=== PATIENT | female | born 1965 | race American Indian/Alaskan Native ===

== ENCOUNTER 2019-11-12 12:03 | Inpatient (IN) | payer SELFPAY ==
[2019-11-12] MEDS ORDERED: INSULIN REGULAR, HUMAN 100 UNITS/1 ML IV ONE (12:38)
[2019-11-12] MEDS ORDERED: SODIUM CHLORIDE 0.9% 1000 ML 1,000 ML IV ONE ×3 (12:38→15:34)
[2019-11-12] MEDS ORDERED: DEXTROSE 50% IN WATER (25GM) 50 ML SYRINGE IV PRN (12:51)
[2019-11-12 13:03] LABS: Monocytes % (Auto) 9.1 % (0.0-7.3)
[2019-11-12 13:09] LABS: Hemoglobin 12.5 gm/dl (10.1-14.3); Red Blood Count 5.38 M/mm3 (3.65-5.03)
[2019-11-12 13:10] LABS: Basophils % (Auto) 0.2 % (0.0-1.8); Hematocrit 41.6 % (30.3-42.9); Lymphocytes # (Auto) 1.4 K/mm3 (1.2-5.4); Lymphocytes % (Auto) 12.8 % (13.4-35.0); Mean Corpuscular HGB Conc 30 % (30-34); Mean Corpuscular Volume 77 fl (79-97); Platelet Count 209 K/mm3 (140-440)
--- NOTE | 2019-11-12 13:28 | Cat Scan Report ---
CT HEAD WITHOUT CONTRAST INDICATION / CLINICAL INFORMATION: ams. TECHNIQUE: Axial imaging performed from the skull apex through the skull base without the use of cont rast. Sagittal and coronal reformatted images. All CT scans at this location are performed using CT dose reduction for ALARA by means of automated exposure control. COMPARISON: None available. FINDINGS: CEREBRAL PARENCHYMA: No significant abnormality. No acute territorial infarct. HEMORRHAGE: None. EXTRA-AXIAL SPACES: Normal in size and morphology for the patient's age. VENTRICULAR SYSTEM: Normal in size and morphology for the patient's age. MIDLINE SHIFT OR HERNIATION: None. CEREBELLUM / BRAINSTEM: No significant abnormality. CALVARIUM: No significant abnormality. ORBITS: Normal as visualized. PARANASAL SINUSES / MASTOID AIR CELLS: Normal as visualized. SOFT TISSUES of HEAD: No significant abnormality. ADDITIONAL FINDINGS: None. IMPRESSION: No acute intracranial abnormality. CT CERVICAL SPINE WITHOUT CONTRAST INDICATION: ams. Found on floor. TECHNIQUE: Axial imaging performed through the cervical spine without the use of contrast. Sagittal and coronal reconstructed images were also reviewed. All CT scans at this location are performed us ing CT dose reduction for ALARA by means of automated exposure control. COMPARISON: None FINDINGS: Alignment: Spinal alignment is normal. Bones: There is no acute osseous abnormality. Mild multilevel discogenic DJD is present. Soft tissues: No acute or significant incidental soft tissue abnormality. IMPRESSION: No acute abnormality. Signer Name: Robin Mendoza Jr, MD Signed: 11/12/2019 1:23 PM Workstation Name: [id number]
--- NOTE | 2019-11-12 13:41 | Emergency Department Report ---
ED Altered Mental Status HPI - General Chief Complaint: Altered Mental Status Stated Complaint: ALTERED MENTAL STATUS Time Seen by Provider: 11/12/19 12:38 Source: patient, EMS Mode of arrival: Stretcher Limitations: No Limitations - History of Present Illness Initial Comments: 54-year-old female with no known significant past medical history presents to the hospital with alteration in mental status.. Patient has been reclusive since her mother's in [place] 1 month ago. She does not have any family in the [place]. Her friends have been coming by to see her periodically and bring her food. They report that she has been "declining" over the last month. Today she was found on the floor of her house confused and was brought to the ER for evaluation. Patient is very slow to respond to questions and falls asleep. Kussmaul respirations noted. Patient denies any pain - Related Data Home Medications Medication Instructions Recorded Confirmed Last Taken Calcium Carbonate [ Calcium 600 mg PO 04/17/13 04/23/13 04/22/13 Elemental 600 mg] Marcia Dexter/Linoleic/Gamoleni 1 cap PO DAILY 04/17/13 04/23/13 04/18/13 [Evening Dexter 1,000 mg Sftg] Multivitamin [Multi Vitamin Daily] 1 each PO 04/17/13 04/23/13 04/22/13 [place]-3 Fatty Acids/Fish Oil [Fish 1 each PO DAILY 04/17/13 04/23/13 04/18/13 Oil] Previous Rx's Medication Instructions Recorded Last Taken Type HYDROcodone/ACETAMINOPHEN 1 each PO Q6H PRN #20 tablet 04/15/13 04/18/13 Rx [Hydrocodone Acetaminophen 7.5/500Mg Tab] Oxycodone HCl/Acetaminophen 1 each PO Q4-6H PRN #60 tablet 04/23/13 Unknown Rx [Percocet 7.5-325 mg] Allergies Allergy/AdvReac Type Severity Reaction Status Date / Time latex Allergy Swelling Verified 11/12/19 12:38 Penicillins Allergy Hives Verified 11/12/19 12:38 ED Review of Systems ROS: Stated complaint: ALTERED MENTAL STATUS Other details as noted in HPI Comment: All other systems reviewed and negative ED Past Medical Hx - Past Medical History Previous Medical History?: Yes Hx Hypertension: No Hx Heart Attack/AMI: No Hx GERD: Yes Hx Liver Disease: No Hx Renal Disease: No Hx Sickle Cell Disease: No Hx Seizures: No Hx Asthma: No Hx COPD: No Additional medical history: uterine fibroids - Surgical History Past Surgical History?: Yes Hx Pacemaker: No Hx Internal Defibrillator: No Additional Surgical History: myomectomy - Social History Smoking Status: Never Smoker - Medications Home Medications: Home Medications Medication Instructions Recorded Confirmed Last Taken Type HYDROcodone/ACETAMINOPHEN 1 each PO Q6H PRN #20 tablet 04/15/13 04/23/13 04/18/13 Rx [Hydrocodone Acetaminophen 7.5/500Mg Tab] Calcium Carbonate [ Calcium 600 mg PO 04/17/13 04/23/13 04/22/13 History Elemental 600 mg] Marcia Dexter/Linoleic/Gamoleni 1 cap PO DAILY 04/17/13 04/23/13 04/18/13 History [Evening Dexter 1,000 mg Sftg] Multivitamin [Multi Vitamin Daily] 1 each PO 04/17/13 04/23/13 04/22/13 History Cast[place]-3 Fatty Acids/Fish Oil [Fish 1 each PO DAILY 04/17/13 04/23/13 04/18/13 History Oil] Oxycodone HCl/Acetaminophen 1 each PO Q4-6H PRN #60 tablet 04/23/13 Unknown Rx [Percocet 7.5-325 mg] ED Physical Exam - General Limitations: No Limitations - Other Other exam information: General: No acute distress Head: Atraumatic Eyes: normal appearance ENT: Dry mucous membrane Neck: Normal appearance, no midline tenderness Chest: Clear to auscultation bilaterally, mild tachypnea CV: Tachycardic regular rhythm Abdomen: Soft, normal bowel sounds, nontender, nondistended, no rebound or guarding Back: Normal inspection Extremity: Normal inspection, full range of motion Neuro: Lethargic, slow to respond to questions, follows commands, no facial asymmetry, equal handgrip of foot dorsiflexion. Oriented to person, place, and year Psych: Appropriate behavior Skin: No rash ED Course Vital Signs 11/12/19 11/12/19 11/12/19 12:33 12:44 12:46 Temperature 97.5 F L 97.3 F L Pulse Rate 114 H 114 H Respiratory 16 24 23 Rate Blood Pressure 114/57 129/89 Blood Pressure 129/89 [Right] O2 Sat by Pulse 100 99 100 Oximetry 11/12/19 11/12/19 13:46 14:46 Temperature Pulse Rate 121 H 128 H Respiratory 29 H 22 Rate Blood Pressure 105/53 102/72 Blood Pressure [Right] O2 Sat by Pulse 100 99 Oximetry - Reevaluation(s) Reevaluation #1: 11/12/19 15:06 delay in receiving chemistry values due to lab/phelbotomy error/delays. drawn a 3rd time, requested stat. - Lab Data Result diagrams: 11/12/19 12:41 11/12/19 12:50 Lab Results 11/12/19 11/12/19 11/12/19 Range/Units 12:41 12:41 12:47 WBC 10.8 (4.5-11.0) K/mm3 RBC 5.38 H (3.65-5.03) M/mm3 Hgb 12.5 (10.1-14.3) gm/dl Hct 41.6 (30.3-42.9) % MCV 77 L (79-97) fl MCH 23 L (28-32) pg MCHC 30 (30-34) % RDW 16.0 H (13.2-15.2) % Plt Count 209 (140-440) K/mm3 Lymph % (Auto) 12.8 L (13.4-35.0) % [place] % (Auto) 9.1 H (0.0-7.3) % Eos % (Auto) 0.0 (0.0-4.3) % Baso % (Auto) 0.2 (0.0-1.8) % Lymph # 1.4 (1.2-5.4) K/mm3 [place] # 1.0 H (0.0-0.8) K/mm3 Eos # 0.0 (0.0-0.4) K/mm3 Baso # 0.0 (0.0-0.1) K/mm3 Seg Neutrophils % 77.9 H (40.0-70.0) % Seg Neutrophils # 8.4 H (1.8-7.7) K/mm3 VBG pH 7.095 L* (7.320-7.420) Sodium (137-145) mmol/L Potassium (3.6-5.0) mmol/L Chloride (98-107) mmol/L Carbon Dioxide (22-30) mmol/L Anion Gap mmol/L BUN (7-17) mg/dL Creatinine (0.7-1.2) mg/dL Estimated GFR ml/min BUN/Creatinine Ratio % Glucose (65-100) mg/dL POC Glucose > 500 H (70-105) Calcium (8.4-10.2) mg/dL Phosphorus (2.5-4.5) mg/dL Magnesium (1.7-2.3) mg/dL Total Bilirubin (0.1-1.2) mg/dL AST (5-40) units/L ALT (7-56) units/L Alkaline Phosphatase (35-129) units/L Total Creatine Kinase (30-135) units/L Total Protein (6.3-8.2) g/dL Albumin (3.9-5) g/dL Albumin/Globulin Ratio % Urine Color (Yellow) Urine Turbidity (Clear) Urine pH (5.0-7.0) Ur Specific [place] (1.003-1.030) Urine Protein (Negative) mg/dL Urine Glucose (UA) (Negative) mg/dL Urine Ketones (Negative) mg/dL Urine Blood (Negative) Urine Nitrite (Negative) Urine Bilirubin (Negative) Urine Urobilinogen (<2.0) mg/dL Ur Leukocyte Esterase (Negative) Urine WBC (Auto) (0.0-6.0) /HPF Urine RBC (Auto) (0.0-6.0) /HPF U Epithel Cells (Auto) (0-13.0) /HPF Urine Bacteria (Auto) (Negative) /HPF Urine Mucus /HPF Ur Yeast w Hyphae /HPF Urine Yeast (Budding) /HPF Salicylates (2.8-20.0) mg/dL Urine Opiates Screen Urine Methadone Screen Acetaminophen (10.0-30.0) ug/mL Ur Barbiturates Screen Ur Phencyclidine Scrn Ur Amphetamines Screen U Benzodiazepines Scrn Urine Cocaine Screen U Marijuana (THC) Screen Drugs of Abuse Note Plasma/Serum Alcohol (0-0.07) % 11/12/19 11/12/19 11/12/19 Range/Units 12:50 12:50 12:50 WBC (4.5-11.0) K/mm3 RBC (3.65-5.03) M/mm3 Hgb (10.1-14.3) gm/dl Hct (30.3-42.9) % MCV (79-97) fl MCH (28-32) pg MCHC (30-34) % RDW (13.2-15.2) % Plt Count (140-440) K/mm3 Lymph % (Auto) (13.4-35.0) % [place] % (Auto) (0.0-7.3) % Eos % (Auto) (0.0-4.3) % Baso % (Auto) (0.0-1.8) % Lymph # (1.2-5.4) K/mm3 [place] # (0.0-0.8) K/mm3 Eos # (0.0-0.4) K/mm3 Baso # (0.0-0.1) K/mm3 Seg Neutrophils % (40.0-70.0) % Seg Neutrophils # (1.8-7.7) K/mm3 VBG pH (7.320-7.420) Sodium 136 L (137-145) mmol/L Potassium 5.7 H (3.6-5.0) mmol/L Chloride 99.7 (98-107) mmol/L Carbon Dioxide 5 L* (22-30) mmol/L Anion Gap 37 mmol/L BUN 31 H (7-17) mg/dL Creatinine 1.1 (0.7-1.2) mg/dL Estimated GFR > 60 ml/min BUN/Creatinine Ratio 28 % Glucose 577 H* (65-100) mg/dL POC Glucose (70-105) Calcium 9.5 (8.4-10.2) mg/dL Phosphorus 4.00 (2.5-4.5) mg/dL Magnesium 2.60 H (1.7-2.3) mg/dL Total Bilirubin 0.30 (0.1-1.2) mg/dL AST 16 (5-40) units/L ALT 17 (7-56) units/L Alkaline Phosphatase 100 (35-129) units/L Total Creatine Kinase (30-135) units/L Total Protein 7.5 (6.3-8.2) g/dL Albumin 4.0 (3.9-5) g/dL Albumin/Globulin Ratio 1.1 % Urine Color (Yellow) Urine Turbidity (Clear) Urine pH (5.0-7.0) Ur Specific [place] (1.003-1.030) Urine Protein (Negative) mg/dL Urine Glucose (UA) (Negative) mg/dL Urine Ketones (Negative) mg/dL Urine Blood (Negative) Urine Nitrite (Negative) Urine Bilirubin (Negative) Urine Urobilinogen (<2.0) mg/dL Ur Leukocyte Esterase (Negative) Urine WBC (Auto) (0.0-6.0) /HPF Urine RBC (Auto) (0.0-6.0) /HPF U Epithel Cells (Auto) (0-13.0) /HPF Urine Bacteria (Auto) (Negative) /HPF Urine Mucus /HPF Ur Yeast w Hyphae /HPF Urine Yeast (Budding) /HPF Salicylates < 0.3 L (2.8-20.0) mg/dL Urine Opiates Screen Urine Methadone Screen Acetaminophen < 5.0 L (10.0-30.0) ug/mL Ur Barbiturates Screen Ur Phencyclidine Scrn Ur Amphetamines Screen U Benzodiazepines Scrn Urine Cocaine Screen U Marijuana (THC) Screen Drugs of Abuse Note Plasma/Serum Alcohol (0-0.07) % 11/12/19 11/12/19 11/12/19 Range/Units 12:50 12:50 Unknown WBC (4.5-11.0) K/mm3 RBC (3.65-5.03) M/mm3 Hgb (10.1-14.3) gm/dl Hct (30.3-42.9) % MCV (79-97) fl MCH (28-32) pg MCHC (30-34) % RDW (13.2-15.2) % Plt Count (140-440) K/mm3 Lymph % (Auto) (13.4-35.0) % [place] % (Auto) (0.0-7.3) % Eos % (Auto) (0.0-4.3) % Baso % (Auto) (0.0-1.8) % Lymph # (1.2-5.4) K/mm3 [place] # (0.0-0.8) K/mm3 Eos # (0.0-0.4) K/mm3 Baso # (0.0-0.1) K/mm3 Seg Neutrophils % (40.0-70.0) % Seg Neutrophils # (1.8-7.7) K/mm3 VBG pH (7.320-7.420) Sodium (137-145) mmol/L Potassium (3.6-5.0) mmol/L Chloride (98-107) mmol/L Carbon Dioxide (22-30) mmol/L Anion Gap mmol/L BUN (7-17) mg/dL Creatinine (0.7-1.2) mg/dL Estimated GFR ml/min BUN/Creatinine Ratio % Glucose (65-100) mg/dL POC Glucose (70-105) Calcium (8.4-10.2) mg/dL Phosphorus (2.5-4.5) mg/dL Magnesium (1.7-2.3) mg/dL Total Bilirubin (0.1-1.2) mg/dL AST (5-40) units/L ALT (7-56) units/L Alkaline Phosphatase (35-129) units/L Total Creatine Kinase 269 H (30-135) units/L Total Protein (6.3-8.2) g/dL Albumin (3.9-5) g/dL Albumin/Globulin Ratio % Urine Color Straw (Yellow) Urine Turbidity Clear (Clear) Urine pH 6.0 (5.0-7.0) Ur Specific [place] 1.023 (1.003-1.030) Urine Protein <15 mg/dl (Negative) mg/dL Urine Glucose (UA) >=500 (Negative) mg/dL Urine Ketones 80 (Negative) mg/dL Urine Blood Mod (Negative) Urine Nitrite Neg (Negative) Urine Bilirubin Neg (Negative) Urine Urobilinogen < 2.0 (<2.0) mg/dL Ur Leukocyte Esterase Tr (Negative) Urine WBC (Auto) 19.0 H (0.0-6.0) /HPF Urine RBC (Auto) 7.0 (0.0-6.0) /HPF U Epithel Cells (Auto) 3.0 (0-13.0) /HPF Urine Bacteria (Auto) 1+ (Negative) /HPF Urine Mucus Few /HPF Ur Yeast w Hyphae Few /HPF Urine Yeast (Budding) Few /HPF Salicylates (2.8-20.0) mg/dL Urine Opiates Screen Urine Methadone Screen Acetaminophen (10.0-30.0) ug/mL Ur Barbiturates Screen Ur Phencyclidine Scrn Ur Amphetamines Screen U Benzodiazepines Scrn Urine Cocaine Screen U Marijuana (THC) Screen Drugs of Abuse Note Plasma/Serum Alcohol < 0.01 (0-0.07) % 11/12/19 Range/Units Unknown WBC (4.5-11.0) K/mm3 RBC (3.65-5.03) M/mm3 Hgb (10.1-14.3) gm/dl Hct (30.3-42.9) % MCV (79-97) fl MCH (28-32) pg MCHC (30-34) % RDW (13.2-15.2) % Plt Count (140-440) K/mm3 Lymph % (Auto) (13.4-35.0) % [place] % (Auto) (0.0-7.3) % Eos % (Auto) (0.0-4.3) % Baso % (Auto) (0.0-1.8) % Lymph # (1.2-5.4) K/mm3 [place] # (0.0-0.8) K/mm3 Eos # (0.0-0.4) K/mm3 Baso # (0.0-0.1) K/mm3 Seg Neutrophils % (40.0-70.0) % Seg Neutrophils # (1.8-7.7) K/mm3 VBG pH (7.320-7.420) Sodium (137-145) mmol/L Potassium (3.6-5.0) mmol/L Chloride (98-107) mmol/L Carbon Dioxide (22-30) mmol/L Anion Gap mmol/L BUN (7-17) mg/dL Creatinine (0.7-1.2) mg/dL Estimated GFR ml/min BUN/Creatinine Ratio % Glucose (65-100) mg/dL POC Glucose (70-105) Calcium (8.4-10.2) mg/dL Phosphorus (2.5-4.5) mg/dL Magnesium (1.7-2.3) mg/dL Total Bilirubin (0.1-1.2) mg/dL AST (5-40) units/L ALT (7-56) units/L Alkaline Phosphatase (35-129) units/L Total Creatine Kinase (30-135) units/L Total Protein (6.3-8.2) g/dL Albumin (3.9-5) g/dL Albumin/Globulin Ratio % Urine Color (Yellow) Urine Turbidity (Clear) Urine pH (5.0-7.0) Ur Specific [place] (1.003-1.030) Urine Protein (Negative) mg/dL Urine Glucose (UA) (Negative) mg/dL Urine Ketones (Negative) mg/dL Urine Blood (Negative) Urine Nitrite (Negative) Urine Bilirubin (Negative) Urine Urobilinogen (<2.0) mg/dL Ur Leukocyte Esterase (Negative) Urine WBC (Auto) (0.0-6.0) /HPF Urine RBC (Auto) (0.0-6.0) /HPF U Epithel Cells (Auto) (0-13.0) /HPF Urine Bacteria (Auto) (Negative) /HPF Urine Mucus /HPF Ur Yeast w Hyphae /HPF Urine Yeast (Budding) /HPF Salicylates (2.8-20.0) mg/dL Urine Opiates Screen Presumptive negative Urine Methadone Screen Presumptive negative Acetaminophen (10.0-30.0) ug/mL Ur Barbiturates Screen Presumptive negative Ur Phencyclidine Scrn Presumptive negative Ur Amphetamines Screen Presumptive negative U Benzodiazepines Scrn Presumptive negative Urine Cocaine Screen Presumptive negative U Marijuana (THC) Screen Presumptive negative Drugs of Abuse Note Disclamer Plasma/Serum Alcohol (0-0.07) % - EKG Data -: EKG Interpreted by Id EKG shows normal: sinus rhythm, ST-T waves (no smtei) Rate: tachycardia (118) - Radiology Data Radiology results: report reviewed CT HEAD WITHOUT CONTRAST INDICATION / CLINICAL INFORMATION: ams. TECHNIQUE: Axial imaging performed from the skull apex through the skull base without the use of contrast. Sagittal and coronal reformatted images. All CT scans at this location are performed using CT dose reduction for ALARA by means of automated exposure control. COMPARISON: None available. FINDINGS: CEREBRAL PARENCHYMA: No significant abnormality. No acute territorial infarct. HEMORRHAGE: None. EXTRA- AXIAL SPACES: Normal in size and morphology for the patient's age. VENTRICULAR SYSTEM: Normal in size and morphology for the patient's age. MIDLINE SHIFT OR HERNIATION: None. CEREBELLUM / BRAINSTEM: No significant abnormality. CALVARIUM: No significant abnormality. ORBITS: Normal as visualized. PARANASAL SINUSES / MASTOID AIR CELLS: Normal as visualized. SOFT TISSUES of HEAD: No significant ab normality. ADDITIONAL FINDINGS: None. IMPRESSION: No acute intracranial abnormality. CT CERVICAL SPINE WITHOUT CONTRAST INDICATION: ams. Found on floor. TECHNIQUE: Axial imaging performed through the cervical spine without the use of contrast. Sagittal and coronal reconstructed images were also reviewed. All CT scans at this location are performed using CT dose reduction for ALARA by means of automated exposure control. COMPARISON: None FINDINGS: Alignment: Spinal alignment is normal. Bones: There is no acute osseous abnormality. Mild multilevel discogenic DJD is present. Soft tissues: No acute or significant incidental soft tissue abnormality. IMPRESSION: No acute abnormality. CT CERVICAL SPINE WITHOUT CONTRAST INDICATION: ams. Found on floor. TECHNIQUE: Axial imaging performed through the cervical spine without the use of contrast. Sagittal and coronal reconstructed images were also reviewed. All CT scans at this location are performed using CT dose reduction for ALARA by means of automated exposure control. COMPARISON: None FINDINGS: Alignment: Spinal alignment is normal. Bones: There is no acute osseous abnormality. Mild multilevel discogenic DJD is present. Soft tissues: No acute or significant incidental soft tissue abnormality. IMPRESSION: No acute abnormality. CHEST 1 VIEW INDICATION / CLINICAL INFORMATION: ams. COMPARISON: None available. FINDINGS: SUPPORT DEVICES: None. HEART / MEDIASTINUM: No significant abnormality. LUNGS / PLEURA: No significant pulmonary or pleural abnormality. No pneumothorax. IMPRESSION: No acute finding. - Medical Decision Making Patient presents to the hospital with alteration mental status secondary to new onset diabetes with DKA. Urine leukocytosis noted level ordered for UTI. CT head, cervical spine, chest x-ray unremarkable. Patient requires ICU admission for DKA. Normal saline hydration, insulin bolus followed by IV drip initiated in the ED - Differential Diagnosis dka, infection, ich, encephalopathy Critical Care Time: Yes Critical care time in (mins) excluding proc time.: 35 Critical care attestation.: If time is entered above; I have spent that time in minutes in the direct care of this critically ill patient, excluding procedure time. ED Disposition Clinical Impression: Diabetes mellitus, new onset, DKA (diabetic ketoacidosis), UTI (urinary tract infection) Disposition: OP ADMIT IP TO THIS HOSP Is pt being admited?: Yes Condition: Stable Time of Disposition: 15:29 (DR Flowers/hosp)
--- NOTE | 2019-11-12 13:52 | XRay Report ---
CHEST 1 VIEW INDICATION / CLINICAL INFORMATION: ams. COMPARISON: None available. FINDINGS: SUPPORT DEVICES: None. HEART / MEDIASTINUM: No significant abnormality. LUNGS / PLEURA: No significant pulmonary or pleural abnormality. No pneumothorax. IMPRESSION: No acute finding. Signer Name: Josué Larsen MD Signed: 11/12/2019 1:48 PM Workstation Name: [id number]
[2019-11-12 14:03] LABS: Bacteria,Urine 1+ /HPF (Negative); Bilirubin,Urine NEG (Negative); Blood,Urine MOD (Negative); Color,Urine Straw (Yellow); Mucus,Urine FEW /HPF; Protein,Urine <15 mg/dL mg/dL (Negative); Urobilinogen,Urine < 2.0 mg/dL (<2.0)
[2019-11-12 14:06] LABS: Amphetamine Screen,Urine PRESUMPTIVE NEGATIVE; Benzodiazepines Screen,Urine PRESUMPTIVE NEGATIVE; Cocaine Screen,Urine PRESUMPTIVE NEGATIVE; Methadone Screen,Urine PRESUMPTIVE NEGATIVE; Opiate Screen,Urine PRESUMPTIVE NEGATIVE
[2019-11-12] MEDS: INSULIN REGULAR, HUMAN 100 UNITS in SODIUM CHLORIDE 0.9% 99 ML IV SCH (14:39)
[2019-11-12 14:51] LABS: Cannabinoid Screen,Urine PRESUMPTIVE NEGATIVE
[2019-11-12 15:08] LABS: Alanine Aminotransferase 17 units/L (7-56); BUN/Creatinine Ratio 28; Blood Urea Nitrogen 31 mg/dL (7-17); Calcium 9.5 mg/dL (8.4-10.2); Hemolysis Index 51
[2019-11-12] MEDS ORDERED: SODIUM CHLORIDE 0.9% 1000 ML 2,000 ML IV ONE (16:06)
[2019-11-12] MEDS ORDERED: SODIUM BICARB 8.4% 50 MEQ/50 ML SYRINGE IV ONE (16:07)
--- NOTE | 2019-11-12 16:26 | History and Physical Report ---
History of Present Illness Chief complaint: Confused and lying on the floor History of present illness: 54 YO Female with GERD, Uterine Fibroids presents to ED for evaluation. Patient is confused and unable to provide detailed history. Patient history taken from EMS staff, ED staff, and friends who found the patient. As per friends reportthe patient was found in her home confused and lying in the floor. Patient's friends also report that patient has experienced general decline over the past 1 month. EMS was notified and upon arrival the patient was found to be in distress and subsequently transported to [facility] for further care and evaluation. Patient seen and evaluated in the emergency department. Lab and imaging studies reviewed. Patient was found to have new onset Diabetes complicated by diabetic ketoacidosis as well as metabolic encephalopathy. The patient has clinical lab findings consistent with urinary tract infection. Patient initiated on DKA protocol, and admitted to ICU. Critical care team consulted in ED. Patient also initiated on IV antibiotic therapy for urinary tract infection. No further history is obtainable. Patient is lethargic with tangential thinking at the time of my evaluation. Patient has a positive gag reflex and is able to protect her airway. Past History Past Medical History: GERD, other (See HPI) Past Surgical History: Other (Myomectomy) Social history: single. denies: smoking, alcohol abuse, prescription drug abuse Family history: diabetes, hypertension Medications and Allergies Allergies Allergy/AdvReac Type Severity Reaction Status Date / Time latex Allergy Swelling Verified 11/12/19 12:38 Penicillins Allergy Hives Verified 11/12/19 12:38 Home Medications Medication Instructions Recorded Confirmed Last Taken Type HYDROcodone/ACETAMINOPHEN 1 each PO Q6H PRN #20 tablet 04/15/13 04/23/13 04/18/13 Rx [Hydrocodone Acetaminophen 7.5/500Mg Tab] Calcium Carbonate [ Calcium 600 mg PO 04/17/13 04/23/13 04/22/13 History Elemental 600 mg] Marcia [place]/Linoleic/Gamoleni 1 cap PO DAILY 04/17/13 04/23/13 04/18/13 History [Evening [place] 1,000 mg Sftg] Multivitamin [Multi Vitamin Daily] 1 each PO 04/17/13 04/23/13 04/22/13 History [place]-3 Fatty Acids/Fish Oil [Fish 1 each PO DAILY 04/17/13 04/23/13 04/18/13 History Oil] Oxycodone HCl/Acetaminophen 1 each PO Q4-6H PRN #60 tablet 04/23/13 Unknown Rx [Percocet 7.5-325 mg] Active Meds: Active Medications Dextrose (D50w (25gm) Syringe) 0 ml IV Q30MIN PRN; Protocol PRN Reason: Hypoglycemia Fish Oil (Fish Oil) mg PO DAILY NIKKI Insulin Human Regular 100 (units/ Sodium Chloride) 100 mls @ 1 mls/hr IV TITR NIKKI; Protocol Last Titration: 11/12/19 16:12 Dose: 8 units/hr, 8 mls/hr Documented by: Sodium Chloride (Nacl 0.9% 1000 Ml) 1,000 mls @ 999 mls/hr IV BOLUS ONE Stop: 11/12/19 16:34 Sodium Chloride (Nacl 0.9% 1000 Ml) 2,000 mls @ 999 mls/hr IV BOLUS ONE Stop: 11/12/19 18:06 Sodium Chloride (Sodium Chloride Flush Syringe 10 Ml) 10 ml IV BID NIKKI Sodium Chloride (Sodium Chloride Flush Syringe 10 Ml) 10 ml IV PRN PRN PRN Reason: LINE FLUSH Review of Systems ROS unobtainable: due to mental status Exam - Constitutional Vitals: Temp Pulse Resp BP Pulse Ox 97.3 F L 128 H 22 102/72 99 11/12/19 12:46 11/12/19 14:46 11/12/19 14:46 11/12/19 14:46 11/12/19 14:46 General appearance: Present: mild distress - EENT Eyes: Present: miosis ENT: hearing decreased - Neck Neck: Present: supple, normal ROM - Respiratory Respiratory effort: normal Respiratory: bilateral: CTA - Cardiovascular Heart Sounds: Present: S1 & S2. Absent: rub, click - Extremities Extremities: pulses symmetrical, No edema Peripheral Pulses: within normal limits - Abdominal General gastrointestinal: Present: soft, non-tender, non-distended, normal bowel sounds Female genitourinary: Present: normal - Integumentary Integumentary: Present: clear, dry, clammy - Musculoskeletal Musculoskeletal: generalized weakness - Psychiatric Psychiatric: no appropriate mood/affect, no intact judgment & insight, no memory intact, agitated - Neurologic Neurologic: CNII-XII intact, no focal deficits, moves all extremities, no gait normal Results - Labs CBC & Chem 7: 11/12/19 12:41 11/12/19 12:50 Labs: Abnormal lab results 11/12/19 11/12/19 11/12/19 Range/Units 12:41 12:41 12:47 RBC 5.38 H (3.65-5.03) M/mm3 MCV 77 L (79-97) fl MCH 23 L (28-32) pg RDW 16.0 H (13.2-15.2) % Lymph % (Auto) 12.8 L (13.4-35.0) % [place] % (Auto) 9.1 H (0.0-7.3) % [place] # 1.0 H (0.0-0.8) K/mm3 Seg Neutrophils % 77.9 H (40.0-70.0) % Seg Neutrophils # 8.4 H (1.8-7.7) K/mm3 VBG pH 7.095 L* (7.320-7.420) Sodium (137-145) mmol/L Potassium (3.6-5.0) mmol/L Carbon Dioxide (22-30) mmol/L BUN (7-17) mg/dL Glucose (65-100) mg/dL POC Glucose > 500 H (70-105) Magnesium (1.7-2.3) mg/dL Total Creatine Kinase (30-135) units/L Urine WBC (Auto) (0.0-6.0) /HPF Salicylates (2.8-20.0) mg/dL Acetaminophen (10.0-30.0) ug/mL 11/12/19 11/12/19 11/12/19 Range/Units 12:50 12:50 12:50 RBC (3.65-5.03) M/mm3 MCV (79-97) fl MCH (28-32) pg RDW (13.2-15.2) % Lymph % (Auto) (13.4-35.0) % [place] % (Auto) (0.0-7.3) % [place] # (0.0-0.8) K/mm3 Seg Neutrophils % (40.0-70.0) % Seg Neutrophils # (1.8-7.7) K/mm3 VBG pH (7.320-7.420) Sodium 136 L (137-145) mmol/L Potassium 5.7 H (3.6-5.0) mmol/L Carbon Dioxide 5 L* (22-30) mmol/L BUN 31 H (7-17) mg/dL Glucose 577 H* (65-100) mg/dL POC Glucose (70-105) Magnesium 2.60 H (1.7-2.3) mg/dL Total Creatine Kinase (30-135) units/L Urine WBC (Auto) (0.0-6.0) /HPF Salicylates < 0.3 L (2.8-20.0) mg/dL Acetaminophen < 5.0 L (10.0-30.0) ug/mL 11/12/19 11/12/19 11/12/19 Range/Units 12:50 14:51 16:19 RBC (3.65-5.03) M/mm3 MCV (79-97) fl MCH (28-32) pg RDW (13.2-15.2) % Lymph % (Auto) (13.4-35.0) % [place] % (Auto) (0.0-7.3) % [place] # (0.0-0.8) K/mm3 Seg Neutrophils % (40.0-70.0) % Seg Neutrophils # (1.8-7.7) K/mm3 VBG pH (7.320-7.420) Sodium (137-145) mmol/L Potassium (3.6-5.0) mmol/L Carbon Dioxide (22-30) mmol/L BUN (7-17) mg/dL Glucose (65-100) mg/dL POC Glucose > 500 H 410 H (70-105) Magnesium (1.7-2.3) mg/dL Total Creatine Kinase 269 H (30-135) units/L Urine WBC (Auto) (0.0-6.0) /HPF Salicylates (2.8-20.0) mg/dL Acetaminophen (10.0-30.0) ug/mL 11/12/19 Range/Units Unknown RBC (3.65-5.03) M/mm3 MCV (79-97) fl MCH (28-32) pg RDW (13.2-15.2) % Lymph % (Auto) (13.4-35.0) % [place] % (Auto) (0.0-7.3) % [place] # (0.0-0.8) K/mm3 Seg Neutrophils % (40.0-70.0) % Seg Neutrophils # (1.8-7.7) K/mm3 VBG pH (7.320-7.420) Sodium (137-145) mmol/L Potassium (3.6-5.0) mmol/L Carbon Dioxide (22-30) mmol/L BUN (7-17) mg/dL Glucose (65-100) mg/dL POC Glucose (70-105) Magnesium (1.7-2.3) mg/dL Total Creatine Kinase (30-135) units/L Urine WBC (Auto) 19.0 H (0.0-6.0) /HPF Salicylates (2.8-20.0) mg/dL Acetaminophen (10.0-30.0) ug/mL Assessment and Plan - Patient Problems (1) DKA (diabetic ketoacidosis) Current Visit: Yes Status: Acute Qualifiers: Diabetes mellitus complication detail: with coma Plan to address problem: DKA protocol: IV fluid resuscitation therapy, insulin drip, serial BMP, monitor anion gap, monitor serum potassium, monitor urine output every shift, critical care team consulted in ED. The high probability of a clinically significant, sudden or life threatening deterioration of the [endocrine, renal, cardiac, pulmonary] system(s) required my full and direct attention, intervention and personal management. The aggregate critical care time was [65] minutes. This time is in addition to time spent performing reported procedures but includes the following: [x] Data Review and interpretation [x] Patient assessment and monitoring of vital signs [x] Documentation [x] Medication orders and management (2) Metabolic encephalopathy Current Visit: Yes Status: Acute Plan to address problem: CT head, treat DKA, neuro check, aspiration precaution, seizure precaution. (3) Metabolic acidosis Current Visit: Yes Status: Acute Plan to address problem: BMP, IV fluid resuscitation therapy, treat DKA, repeat BMP in a.m. IV bicarbonate therapy. (4) UTI (urinary tract infection) Current Visit: Yes Status: Acute Qualifiers: Encounter type: initial encounter Plan to address problem: IV antibiotic therapy, urinalysis, CBC. (5) GERD (gastroesophageal reflux disease) Current Visit: Yes Status: Acute Qualifiers: Esophagitis presence: without esophagitis Qualified Code(s): K21.9 - Gastro-esophageal reflux disease without esophagitis Plan to address problem: PPI therapy, supportive care. (6) DVT prophylaxis Current Visit: Yes Status: Acute Plan to address problem: SCD to bilateral lower extremities while in bed, prophylactic heparin
[2019-11-12] MEDS ORDERED: SODIUM CHLORIDE 0.9% 1000 ML 1,000 ML IV SCH ×2 (17:00→21:30)
--- NOTE | 2019-11-12 18:11 | Event Note ---
EDMD IV note Asked by nursing to establish IV. Patient placed in Trendelenburg position. 20-gauge IV placed in the left EJ by myself. Patient tolerated well. Sterile cover in place
[2019-11-12] MEDS: D5W/0.45% NACL 1,000 ML IV SCH (21:43)
[2019-11-12] MEDS: HEPARIN 5,000 UNIT/1 ML VIAL SUB-Q SCH (21:44)
[2019-11-13] MEDS: D5W/0.45% NACL 1,000 ML IV SCH (05:15)
[2019-11-13] MEDS: INSULIN REGULAR, HUMAN 100 UNITS in SODIUM CHLORIDE 0.9% 99 ML IV SCH (05:39)
[2019-11-13 06:53] LABS: Alanine Aminotransferase 12 units/L (7-56); BUN/Creatinine Ratio 26; Blood Urea Nitrogen 13 mg/dL (7-17); Calcium 8.5 mg/dL (8.4-10.2); Hemolysis Index 39
[2019-11-13] MEDS ORDERED: POTASSIUM PHOSPHATE 15 MMOL in SODIUM CHLORIDE 0.9% 250ML 250 ML IV ONE (08:30)
[2019-11-13] MEDS ORDERED: INSULIN NPH, HUMAN 100 UNIT/1 ML SUB-Q SCH (10:00)
[2019-11-13] MEDS: HEPARIN 5,000 UNIT/1 ML VIAL SUB-Q SCH ×2 (10:32→21:12)
[2019-11-13] MEDS: INSULIN NPH, HUMAN 100 UNIT/1 ML SUB-Q SCH ×2 (10:33→16:45)
[2019-11-13] MEDS: OMEGA-3 FATTY ACIDS/FISH OIL 1 GRAM CAP PO SCH (10:33)
[2019-11-13] MEDS: SODIUM CHLORIDE 0.9% 1000 ML 1,000 ML IV SCH ×2 (10:34→21:49)
[2019-11-13] MEDS: INSULIN REGULAR, HUMAN 100 UNITS/1 ML SUB-Q SCH ×3 (12:54→21:11)
[2019-11-13] MEDS: levoFLOXacin 500 MG TAB PO SCH (12:55)
--- NOTE | 2019-11-13 14:29 | Progress Note ---
Assessment and Plan / DKA (diabetic ketoacidosis) placed on DKA protocol: IV fluid resuscitation therapy, insulin drip, serial BMP, critical care team consulted in ED. a1c 12.6 AG closed, will stop insilin drip place on SSI, long acting insulin, consistent carb diet / Metabolic encephalopathy due to DKA - now resolved CT head showed no acute issue / UTI (urinary tract infection) IV antibiotic therapy, /GERD (gastroesophageal reflux disease) PPI therapy, supportive care. /DVT prophylaxis SCD to bilateral lower extremities while in bed, prophylactic heparin Subjective Date of service: 11/13/19 Interval history: Patient seen and examined pt denies any chest pain or sob no n/v/abdominal pian Objective - Constitutional Vitals: Vital Signs - 12hr 11/13/19 11/13/19 11/13/19 02:30 02:40 02:50 Temperature Pulse Rate 96 H 96 H 95 H Respiratory 18 16 17 Rate Blood Pressure 107/55 107/55 107/55 O2 Sat by Pulse 98 98 99 Oximetry 11/13/19 11/13/19 11/13/19 03:00 03:10 03:20 Temperature Pulse Rate 95 H 103 H 98 H Respiratory 11 L 20 15 Rate Blood Pressure 92/50 92/50 92/50 O2 Sat by Pulse 99 99 99 Oximetry 11/13/19 11/13/19 11/13/19 03:22 03:30 03:40 Temperature 99.4 F Pulse Rate 100 H 98 H Respiratory 14 16 Rate Blood Pressure 92/50 92/50 O2 Sat by Pulse 99 99 Oximetry 11/13/19 11/13/19 11/13/19 03:50 04:00 04:10 Temperature Pulse Rate 99 H 99 H 99 H Respiratory 16 20 13 Rate Blood Pressure 92/50 107/59 107/59 O2 Sat by Pulse 99 99 99 Oximetry 11/13/19 11/13/19 11/13/19 04:20 04:30 04:40 Temperature Pulse Rate 98 H 98 H 95 H Respiratory 16 19 16 Rate Blood Pressure 107/59 107/59 107/59 O2 Sat by Pulse 99 99 99 Oximetry 11/13/19 11/13/19 11/13/19 04:50 05:00 05:10 Temperature Pulse Rate 99 H 98 H 97 H Respiratory 18 17 16 Rate Blood Pressure 107/59 104/63 104/63 O2 Sat by Pulse 97 100 99 Oximetry 11/13/19 11/13/19 05/11/27 05:20 05:30 05:40 Temperature Pulse Rate 103 H 100 H 103 H Respiratory 18 20 21 Rate Blood Pressure 104/63 104/63 104/63 O2 Sat by Pulse 99 99 99 Oximetry 11/13/19/11/2711/13/19 05:50 06:00 06:10 Temperature Pulse Rate 100 H 107 H 105 H Respiratory 19 19 21 Rate Blood Pressure 104/63 101/55 101/55 O2 Sat by Pulse 99 99 98 Oximetry 11/13/19 11/13/19/11/27 06:20 06:30 06:40 Temperature Pulse Rate 109 H 102 H 103 H Respiratory 17 13 14 Rate Blood Pressure 101/55 101/55 101/55 O2 Sat by Pulse 99 99 98 Oximetry 11/13/19//27 11/11/27 06:46 06:50 07:00 Temperature Pulse Rate 95 H 102 H 103 H Respiratory 20 22 20 Rate Blood Pressure 101/55 105/61 O2 Sat by Pulse 100 98 98 Oximetry 11/13/19 11/13/19 11/13/19 07:10 07:20 07:30 Temperature Pulse Rate 102 H 102 H 101 H Respiratory 19 18 19 Rate Blood Pressure 105/61 105/61 105/61 O2 Sat by Pulse 98 99 99 Oximetry 11/13/1911/12/27 11/11/27 07:40 07:50 08:00 Temperature Pulse Rate 102 H 99 H 96 H Respiratory 19 19 19 Rate Blood Pressure 105/61 105/61 110/68 O2 Sat by Pulse 99 98 98 Oximetry 11/13/19/11/2711/13/19 08:10 08:20 08:30 Temperature Pulse Rate 97 H 99 H 100 H Respiratory 19 19 20 Rate Blood Pressure 110/68 110/68 110/68 O2 Sat by Pulse 98 98 98 Oximetry 11/13/19//27 11/11/27 08:40 08:50 09:00 Temperature Pulse Rate 103 H 101 H 105 H Respiratory 24 22 16 Rate Blood Pressure 110/68 110/68 103/66 O2 Sat by Pulse 99 100 99 Oximetry 11/13/1911/12/27 11/11/27 09:10 09:20 09:30 Temperature Pulse Rate 101 H 102 H 103 H Respiratory 21 18 15 Rate Blood Pressure 103/66 110/68 110/68 O2 Sat by Pulse 100 97 99 Oximetry 11/13/19 11/13/19 11/13/19 09:40 09:50 10:00 Temperature Pulse Rate 102 H 105 H 104 H Respiratory 19 21 21 Rate Blood Pressure 110/68 103/66 107/58 O2 Sat by Pulse 98 99 100 Oximetry 11/13/19 11/13/19 11/13/19 10:10 10:20 10:30 Temperature Pulse Rate 102 H 105 H 106 H Respiratory 15 20 19 Rate Blood Pressure 107/58 107/58 107/58 O2 Sat by Pulse 100 100 99 Oximetry 11/13/19 10:40 Temperature Pulse Rate 103 H Respiratory 24 Rate Blood Pressure 107/58 O2 Sat by Pulse Oximetry General appearance: Present: no acute distress, well-nourished - EENT Eyes: PERRL, EOM intact ENT: hearing intact, clear oral mucosa Ears: bilateral: normal - Neck Neck: supple, normal ROM - Respiratory Respiratory effort: normal Respiratory: bilateral: CTA - Cardiovascular Rhythm: regular Heart Sounds: Present: S1 & S2. Absent: gallop, rub Extremities: pulses intact, No edema, normal color, Full ROM - Gastrointestinal General gastrointestinal: Present: soft, non-tender, non-distended, normal bowel sounds - Integumentary Integumentary: clear, warm, dry - Musculoskeletal Musculoskeletal: 1, strength equal bilaterally - Neurologic Neurologic: moves all extremities - Psychiatric Psychiatric: memory intact, appropriate mood/affect, intact judgment & insight - Labs CBC & Chem 7: 11/12/19 12:41 11/14/19 03:41 Labs: Abnormal lab results 11/12/19 11/12/19 11/12/19 Range/Units 12:50 12:50 14:51 Sodium 136 L (137-145) mmol/L Potassium 5.7 H (3.6-5.0) mmol/L Carbon Dioxide 5 L* (22-30) mmol/L BUN 31 H (7-17) mg/dL Creatinine (0.7-1.2) mg/dL Glucose 577 H* (65-100) mg/dL POC Glucose > 500 H (70-105) Hemoglobin A1c (4-6) % Phosphorus (2.5-4.5) mg/dL Magnesium 2.60 H (1.7-2.3) mg/dL Total Creatine Kinase 269 H (30-135) units/L Total Protein (6.3-8.2) g/dL Albumin (3.9-5) g/dL 11/12/19 11/12/19 11/12/19 Range/Units 16:19 19:45 20:30 Sodium (137-145) mmol/L Potassium (3.6-5.0) mmol/L Carbon Dioxide (22-30) mmol/L BUN (7-17) mg/dL Creatinine (0.7-1.2) mg/dL Glucose (65-100) mg/dL POC Glucose 410 H 228 H 174 H (70-105) Hemoglobin A1c (4-6) % Phosphorus (2.5-4.5) mg/dL Magnesium (1.7-2.3) mg/dL Total Creatine Kinase (30-135) units/L Total Protein (6.3-8.2) g/dL Albumin (3.9-5) g/dL 11/12/19 11/12/19 11/12/19 Range/Units 21:14 22:11 23:04 Sodium (137-145) mmol/L Potassium (3.6-5.0) mmol/L Carbon Dioxide (22-30) mmol/L BUN (7-17) mg/dL Creatinine (0.7-1.2) mg/dL Glucose (65-100) mg/dL POC Glucose 155 H 152 H 188 H (70-105) Hemoglobin A1c (4-6) % Phosphorus (2.5-4.5) mg/dL Magnesium (1.7-2.3) mg/dL Total Creatine Kinase (30-135) units/L Total Protein (6.3-8.2) g/dL Albumin (3.9-5) g/dL 11/13/19 11/13/19 11/13/19 Range/Units 00:10 01:15 02:10 Sodium (137-145) mmol/L Potassium (3.6-5.0) mmol/L Carbon Dioxide (22-30) mmol/L BUN (7-17) mg/dL Creatinine (0.7-1.2) mg/dL Glucose (65-100) mg/dL POC Glucose 191 H 221 H 189 H (70-105) Hemoglobin A1c (4-6) % Phosphorus (2.5-4.5) mg/dL Magnesium (1.7-2.3) mg/dL Total Creatine Kinase (30-135) units/L Total Protein (6.3-8.2) g/dL Albumin (3.9-5) g/dL 11/13/19 11/13/19 11/13/19 Range/Units 03:22 04:11 05:14 Sodium (137-145) mmol/L Potassium (3.6-5.0) mmol/L Carbon Dioxide (22-30) mmol/L BUN (7-17) mg/dL Creatinine (0.7-1.2) mg/dL Glucose (65-100) mg/dL POC Glucose 198 H 142 H 126 H (70-105) Hemoglobin A1c (4-6) % Phosphorus (2.5-4.5) mg/dL Magnesium (1.7-2.3) mg/dL Total Creatine Kinase (30-135) units/L Total Protein (6.3-8.2) g/dL Albumin (3.9-5) g/dL 11/13/19 11/13/19 11/13/19 Range/Units 05:53 06:10 06:50 Sodium (137-145) mmol/L Potassium (3.6-5.0) mmol/L Carbon Dioxide 20 L D (22-30) mmol/L BUN (7-17) mg/dL Creatinine 0.5 L D (0.7-1.2) mg/dL Glucose 122 H (65-100) mg/dL POC Glucose 127 H 159 H (70-105) Hemoglobin A1c (4-6) % Phosphorus 1.70 L D (2.5-4.5) mg/dL Magnesium (1.7-2.3) mg/dL Total Creatine Kinase (30-135) units/L Total Protein 5.5 L D (6.3-8.2) g/dL Albumin 3.0 L (3.9-5) g/dL 11/13/19 Range/Units 10:26 Sodium (137-145) mmol/L Potassium (3.6-5.0) mmol/L Carbon Dioxide (22-30) mmol/L BUN (7-17) mg/dL Creatinine (0.7-1.2) mg/dL Glucose (65-100) mg/dL POC Glucose (70-105) Hemoglobin A1c 12.6 H (4-6) % Phosphorus (2.5-4.5) mg/dL Magnesium (1.7-2.3) mg/dL Total Creatine Kinase (30-135) units/L Total Protein (6.3-8.2) g/dL Albumin (3.9-5) g/dL
[2019-11-13] MEDS: K-PHOS NEUTRAL 250 MG TAB PO SCH ×3 (15:00→21:12)
[2019-11-14 04:37] LABS: BUN/Creatinine Ratio 20; Blood Urea Nitrogen 8 mg/dL (7-17); Calcium 8.2 mg/dL (8.4-10.2); Hemolysis Index 10
[2019-11-14] MEDS ORDERED: INSULIN NPH, HUMAN 100 UNIT/1 ML SUB-Q SCH (08:00)
[2019-11-14] MEDS ORDERED: POTASSIUM CHLORIDE ER 20 MEQ TAB PO NR (08:05)
[2019-11-14] MEDS: OMEGA-3 FATTY ACIDS/FISH OIL 1 GRAM CAP PO SCH (10:19)
[2019-11-14] MEDS: levoFLOXacin 500 MG TAB PO SCH (10:19)
[2019-11-14] MEDS: HEPARIN 5,000 UNIT/1 ML VIAL SUB-Q SCH ×2 (10:19→21:35)
[2019-11-14] MEDS: K-PHOS NEUTRAL 250 MG TAB PO SCH ×4 (10:19→21:34)
[2019-11-14] MEDS: INSULIN NPH, HUMAN 100 UNIT/1 ML SUB-Q SCH ×2 (10:19→17:26)
[2019-11-14] MEDS: INSULIN REGULAR, HUMAN 100 UNITS/1 ML SUB-Q SCH ×4 (10:20→21:35)
--- NOTE | 2019-11-14 12:54 | Progress Note ---
Assessment and Plan / DKA (diabetic ketoacidosis) s/p DKA protocol: IV fluid resuscitation therapy, insulin drip, serial BMP, a1c 12.6, placed on SSI, long acting insulin, consistent carb diet cont to adjust insulin dose for better BG control /hypokalemia replete / Metabolic encephalopathy due to DKA - now resolved CT head showed no acute issue / UTI (urinary tract infection) cont IV antibiotic therapy, /GERD (gastroesophageal reflux disease) PPI therapy, supportive care. /DVT prophylaxis SCD to bilateral lower extremities while in bed, prophylactic heparin Disposition: possible d/c in the am If am BG < 250 Subjective Date of service: 11/14/19 Interval history: Patient seen and examined pt denies any chest pain or sob c/o constipation, no abdominal pain Objective - Constitutional Vitals: Vital Signs - 12hr 11/14/19 11/14/19 04:09 07:25 Temperature 98.5 F 98.2 F Pulse Rate 92 H 98 H Respiratory 20 18 Rate Blood Pressure 100/57 102/59 O2 Sat by Pulse 98 94 Oximetry General appearance: Present: no acute distress, well-nourished - EENT Eyes: PERRL, EOM intact ENT: hearing intact, clear oral mucosa Ears: bilateral: normal - Neck Neck: supple, normal ROM - Respiratory Respiratory effort: normal Respiratory: bilateral: CTA - Cardiovascular Rhythm: regular Heart Sounds: Present: S1 & S2. Absent: gallop, rub Extremities: pulses intact, No edema, normal color, Full ROM - Gastrointestinal General gastrointestinal: Present: soft, non-tender, non-distended, normal bowel sounds - Integumentary Integumentary: clear, warm, dry - Musculoskeletal Musculoskeletal: 1, strength equal bilaterally - Neurologic Neurologic: moves all extremities - Psychiatric Psychiatric: memory intact, appropriate mood/affect, intact judgment & insight - Labs CBC & Chem 7: 11/12/19 12:41 11/14/19 03:41 Labs: Abnormal lab results 11/13/19 11/13/19 11/13/19 Range/Units 08:10 09:11 11:46 Sodium (137-145) mmol/L Potassium (3.6-5.0) mmol/L Creatinine (0.7-1.2) mg/dL Glucose (65-100) mg/dL POC Glucose 222 H 213 H 153 H (70-105) Calcium (8.4-10.2) mg/dL 11/13/19 11/13/19 11/14/19 Range/Units 16:43 20:21 03:41 Sodium 133 L (137-145) mmol/L Potassium 3.0 L (3.6-5.0) mmol/L Creatinine 0.4 L (0.7-1.2) mg/dL Glucose 279 H (65-100) mg/dL POC Glucose 301 H 342 H (70-105) Calcium 8.2 L (8.4-10.2) mg/dL 11/14/19 11/14/19 Range/Units 08:37 12:47 Sodium (137-145) mmol/L Potassium (3.6-5.0) mmol/L Creatinine (0.7-1.2) mg/dL Glucose (65-100) mg/dL POC Glucose 246 H 308 H (70-105) Calcium (8.4-10.2) mg/dL
[2019-11-14] MEDS: POLYETHYLENE GLYCOL 3350 17 GM POWDER PO SCH (17:26)
[2019-11-14] MEDS: DOCUSATE SODIUM 100 MG CAP PO SCH ×2 (17:26→21:34)
[2019-11-14] MEDS ORDERED: POTASSIUM CHLORIDE ER 20 MEQ TAB PO ONE (23:03)
[2019-11-15] MEDS: OMEGA-3 FATTY ACIDS/FISH OIL 1 GRAM CAP PO SCH (09:38)
[2019-11-15] MEDS: INSULIN REGULAR, HUMAN 100 UNITS/1 ML SUB-Q SCH ×3 (09:38→17:00)
[2019-11-15] MEDS: levoFLOXacin 500 MG TAB PO SCH (09:39)
[2019-11-15] MEDS: DOCUSATE SODIUM 100 MG CAP PO SCH (09:39)
[2019-11-15] MEDS: POLYETHYLENE GLYCOL 3350 17 GM POWDER PO SCH (09:39)
[2019-11-15] MEDS: HEPARIN 5,000 UNIT/1 ML VIAL SUB-Q SCH (09:40)
[2019-11-15] MEDS: K-PHOS NEUTRAL 250 MG TAB PO SCH ×3 (09:43→16:59)
[2019-11-15] MEDS ORDERED: POTASSIUM CHLORIDE ER 20 MEQ TAB PO SCH (10:00)
[2019-11-15] MEDS: INSULIN NPH, HUMAN 100 UNIT/1 ML SUB-Q SCH ×2 (10:00→16:59)
--- NOTE | 2019-11-15 12:41 | Discharge Summary ---
Providers - Providers Date of Admission: 11/12/19 15:21 Date of discharge: 11/15/19 Attending physician: APOLINAR PANDEY Pulmonology cardiology Primary care physician: [employer] Hospitalization Condition: Fair Hospital course: Patient presente with DKA was unable to receive insulin. Patient was brought in placed on DKA protocol gap was closed. Patient hospital course was complicated by hypokalemia and resolved and corrected. Patient also had evidence of toxic metabolic encephalopathy that resolved. Patient alert oriented x3 now. Patient did state that she had constipation and would like to use the bathroom prior to this. Patient also was treated for urinary tract infection with broad-spectrum IV antibiotics. D Disposition: DC-01 TO HOME OR SELFCARE - Discharge Diagnoses (1) DKA (diabetic ketoacidosis) Status: Acute Qualifiers: Diabetes mellitus complication detail: with coma Comment: Patient DKA placed on insulin 18 units twice daily. Patient also should be able to discharge and follow with primary care physician to further titrate patient to oral hypoglycemic. (2) Diabetes mellitus, new onset Status: Acute Comment: Nutritional changes as patient been instructed low carbohydrate diet. Also insulin 18 units twice daily. 7030. (3) GERD (gastroesophageal reflux disease) Status: Acute Qualifiers: Esophagitis presence: without esophagitis Qualified Code(s): K21.9 - Gastro-esophageal reflux disease without esophagitis Comment: Continue treatment for PPI (4) Metabolic acidosis Status: Acute (5) Metabolic encephalopathy Status: Resolved (6) UTI (urinary tract infection) Status: Acute Qualifiers: Encounter type: initial encounter Core Measure Documentation - Palliative Care Palliative Care/ Comfort Measures: Not Applicable - Core Measures Any of the following diagnoses?: none Exam - Constitutional Vitals: Temp Pulse Resp BP Pulse Ox 98.0 F 99 H 18 93/51 98 11/15/19 11:19 11/15/19 11:19 11/15/19 11:19 11/15/19 11:19 11/15/19 11:19 General appearance: Present: no acute distress, well-nourished - EENT Eyes: Present: PERRL ENT: hearing intact, clear oral mucosa - Neck Neck: Present: supple, normal ROM - Respiratory Respiratory effort: normal Respiratory: bilateral: CTA - Cardiovascular Heart Sounds: Present: S1 & S2. Absent: rub, click - Extremities Extremities: pulses symmetrical, No edema Peripheral Pulses: within normal limits - Abdominal General gastrointestinal: Present: soft, non-tender, non-distended, normal bowel sounds Female genitourinary: Present: normal - Integumentary Integumentary: Present: clear, warm, dry - Musculoskeletal Musculoskeletal: gait normal, strength equal bilaterally - Psychiatric Psychiatric: appropriate mood/affect, intact judgment & insight - Neurologic Neurologic: CNII-XII intact, moves all extremities Plan Activity: no restrictions Weight Bearing Status: Non-Weight Bearing Diet: diabetic Follow up with: PRIMARY CARE, [Primary Care Provider] - 7 Days Prescriptions: Docusate Sodium [Colace CAP] 100 mg PO BID #20 capsule Potassium Chloride [K-Dur] 40 meq PO QDAY #7 tablet Phosphorus #1 [K-Phos Neutral] 250 mg PO QID #14 tablet levoFLOXacin [Levaquin TAB] 500 mg PO Q24HR #7 tablet polyethylene glycoL 3350 [Miralax 3350] 17 gm PO QDAY #10 powd.pack Insulin NPH, Human [NovoLIN N] 18 unit SUB-Q BIDDIAB #1 units
[2019-11-15] MEDS ORDERED: MINERAL OIL ENEMA 133 ML PR ONE (13:30)
[2019-11-15 16:00] VITALS: BP 99/68
== END 2019-11-15 17:53 | disposition home or self-care (01) | DRG 637 ==
LOC: ED 12:03 → CC1 15:21 → 4A 11-13 13:36
PROVIDERS: ADMIT Internal Medicine; ATTEND Internal Medicine
DX: E11.11 Type 2 diabetes mellitus with ketoacidosis with coma (principal); G92 Toxic encephalopathy; E87.2 Acidosis; N39.0 Urinary tract infection, site not specified; K21.9 Gastro-esophageal reflux disease without esophagitis; E87.6 Hypokalemia; Z88.0 Allergy status to penicillin; Z91.040 Latex allergy status; Z83.3 Family history of diabetes mellitus; Z82.49 Family history of ischemic heart disease and other diseases of the circulatory system
CPT/HCPCS: 36415; 70450; 71045; 72125; 80048; 80053; 80307; 80320; 81001; 82550; 82805; 82962; 83036; 83735; 84100; 85025; 87086; 93005; G0378; G0480; J1644; J1815; J1956; J7030; J7050